=== PATIENT | female | born 1975 | race Two or more races ===

== ENCOUNTER 2017-02-03 07:52 | Outpatient (CLI) | payer MEDICARE, OTHER ==
[~2017-02-03 07:52] MED LIST: NKM
--- NOTE | 2017-02-03 12:23 | Diagnostic Imaging Report ---
Indication: Dyspnea Comparison: None 2 views of the chest obtained. There is foreshortening of the lungs due to projection angle and spinal deformities which includes what appears to be a kyphosis. The bones are osteopenic. Difficult to completely exclude pathology within the lungs but no obvious large infiltrates are identified. Heart size appears prominent. Impression: Limited study due to body habitus. No obvious acute findings
== END 2017-02-03 09:30 | disposition home or self-care (01) ==
LOC: RAD 07:52
DX: R06.00 Dyspnea, unspecified (principal); M85.89 Other specified disorders of bone density and structure, multiple sites
CPT/HCPCS: 71020

== ENCOUNTER 2018-03-24 07:36 | Outpatient (CLI) | payer MEDICARE, MEDICAID ==
--- NOTE | 2018-03-24 12:05 | Diagnostic Imaging Report ---
Indication: Cough Comparison: 02/03/2017 A single view chest radiograph was obtained. Findings: Severe kyphosis deformity of the thoracic spine limits evaluation with foreshortening of the lungs. There is a prominence of the pulmonary interstitium bilaterally which is probably a chronic finding and unchanged from the last study. Bones are osteopenic. Generalized cardiomegaly is present. IMPRESSION: Very limited exam due to kyphosis. Interstitial prominence noted. CHF or interstitial pneumonitis not excluded.
[2018-03-25] MEDS ORDERED: ALBUTEROL2.5 MG/3 M INH (15:42)
[2018-03-25] MEDS ORDERED: AMLODIPINE BESY10 MG ORAL (15:42)
== END 2018-03-24 19:36 | disposition home or self-care (01) ==
LOC: RAD 07:36
DX: R05 Cough (principal); I51.7 Cardiomegaly; M85.80 Other specified disorders of bone density and structure, unspecified site; J45.909 Unspecified asthma, uncomplicated
CPT/HCPCS: 36600; 71045; 82803

== ENCOUNTER 2018-03-24 14:22 | Inpatient (IN) | payer MEDICARE, MEDICAID ==
[~2018-03-24] VITALS: Ht 91.4 cm; Wt 57.6 kg
[2018-03-25] MEDS ORDERED: AMLODIPINE BESY10 MG ORAL (15:42)
[2018-03-25] MEDS ORDERED: ALBUTEROL2.5 MG/3 M INH (15:42)
[2018-03-25] MEDS ORDERED: Albuterol ud Inhalation HHN PRN (15:45)
[2018-03-25 16:00] VITALS: BP 142/94
[2018-03-25 17:50] LABS: EOSINOPHILS % (AUTO) 3.1 % (0.0-3.0); HEMATOCRIT 36.5 % (37.0-47.0); HEMOGLOBIN 11.3 G/DL (12.0-16.0); MEAN CORPUSCULAR VOLUME 76 FL (80-99); MONOCYTES % (AUTO) 8.6 % (1.0-10.0); NEUTROPHILS % (AUTO) 63.3 % (45.0-75.0); PLATELET COUNT 431 K/UL (150-450); RED BLOOD COUNT 4.79 M/UL (4.20-5.40); RED CELL DISTRIBUTION WIDTH 16.8 % (11.6-14.8); WHITE BLOOD COUNT 7.4 K/UL (4.8-10.8)
[2018-03-25 17:51] LABS: ALANINE AMINOTRANSFERASE 20 U/L (12-78); ALBUMIN 3.5 G/DL (3.4-5.0); ALBUMIN/GLOBULIN RATIO 0.9 (1.0-2.7); ALKALINE PHOSPHATASE 76 U/L (46-116); ANION GAP 5 mmol/L (5-15); ASPARTATE AMINO TRANSFERASE 13 U/L (15-37); BILIRUBIN,TOTAL 0.3 MG/DL (0.2-1.0); BLOOD UREA NITROGEN 10 mg/dL (7-18); CALCIUM 8.3 MG/DL (8.5-10.1); CARBON DIOXIDE 31 MMOL/L (21-32); CHLORIDE 106 MMOL/L (98-107); CREATININE 0.5 MG/DL (0.55-1.30); POTASSIUM 3.8 MMOL/L (3.5-5.1); SODIUM 142 MMOL/L (136-145)
[2018-03-25 20:00] VITALS: BP 125/74
[2018-03-25] MEDS: Heparin 5000 units/ml inj SUBQ SCH (21:00)
[2018-03-26] VITALS: BP 132/81
[2018-03-26 08:00] VITALS: BP 105/72
[2018-03-26] MEDS: Heparin 5000 units/ml inj SUBQ SCH ×2 (09:25→21:00)
--- NOTE | 2018-03-26 10:28 | Diagnostic Imaging Report ---
INDICATION: Dyspnea COMPARISON: Chest x-ray dated 02/03/17 FINDINGS: Single frontal view demonstrates dysmorphic chest cavity. Diminutive bilateral lungs. No pleural effusions. The visualized osseous structures are within normal limits. IMPRESSION: No significant change. Dysmorphic chest cavity with diminutive bilateral lungs.
[2018-03-26 12:00] VITALS: BP 133/85
[2018-03-26 16:00] VITALS: BP 119/82
--- NOTE | 2018-03-26 16:36 | Consultation ---
Consult Note Consult Note PULMONARY & CRITICAL CARE CONSULTATION COVERAGE FOR DR CANDI LYONS REFERRING PHYSICIAN: Yann Espino MD REASON FOR CONSULTATION: Hypoxemia HPI: 42 F h/o OI, wheelchair bound, asthma, chronic CO2 retention and FREDO, non- compliant with NIPPV, on usual nocturnal O2 @ home direct admitted by Dr. Espino with several days of inc SOB and O2 needs, no cough, no wheezing, no Sx' s suggestive of her usual asthma exacerbations. She is on 2L O2 @ night only at home and has been requiring O2 RTC for the past few days. No ill contacts, no T/E/D use. PMH: OI, HTN, asthma, FREDO PSH: Back surgery/apollo placement ALL: Vanco Active Scripts Medications Dose Route/Sig Max Daily Dose Days Date Category Albuterol Sulfate Hhn* (Albuterol Sulfate) 2.5 Mg/3 Ml Vial.neb 3 Ml INH Q4H PRN 03/25/18 Reported Amlodipine Besylate* (Amlodipine Besylate) 10 Mg Tablet 10 Mg ORAL DAILY 03/25/18 Reported SHx: wheelchair bound with severe disability but able to perform ADL's, no T/E/ D use, lives with FHx: N/C ROS: Negative other than HPI PE: Last 24 Hour Vital Signs Date Time Temp Pulse Resp B/P (MAP) Pulse Ox O2 Delivery O2 Flow Rate FiO2 03/26/18 16:00 97.4 87 22 119/82 93 Nasal Cannula 2.0 97.4 03/26/18 12:00 98.4 98 23 133/85 93 Nasal Cannula 2.0 98.4 03/26/18 12:00 116 03/26/18 09:21 102 105/72 03/26/18 08:00 98.2 102 22 105/72 93 Nasal Cannula 2.0 98.2 03/26/18 08:00 101 03/26/18 04:00 96 03/26/18 00:00 98.9 94 23 132/81 92 Nasal Cannula 2.0 98.9 03/26/18 00:00 84 03/25/18 20:38 Nasal Cannula 2.0 28 03/25/18 20:38 94 Nasal Cannula 2.0 28 03/25/18 20:00 90 20 Nasal Cannula 2.0 28 03/25/18 20:00 96 03/25/18 20:00 98.2 100 22 125/74 92 Nasal Cannula 2.0 98.2 NAD, AAOx3 NC/AT, OPC c MMM Supple s LAD or JVD CTA no W/R/R RRR s M/R/G S/NT/ND c NABS No C/C/E, skeletal deformities noted Laboratory Tests Test 03/25/18 16:30 White Blood Count 7.4 K/UL (4.8-10.8) Red Blood Count 4.79 M/UL (4.20-5.40) Hemoglobin 11.3 G/DL (12.0-16.0) L Hematocrit 36.5 % (37.0-47.0) L Mean Corpuscular Volume 76 FL (80-99) L Mean Corpuscular Hemoglobin 23.5 PG (27.0-31.0) L Mean Corpuscular Hemoglobin Concent 30.9 G/DL (32.0-36.0) L Red Cell Distribution Width 16.8 % (11.6-14.8) H Platelet Count 431 K/UL (150-450) Mean Platelet Volume 5.9 FL (6.5-10.1) L Neutrophils (%) (Auto) 63.3 % (45.0-75.0) Lymphocytes (%) (Auto) 24.0 % (20.0-45.0) Monocytes (%) (Auto) 8.6 % (1.0-10.0) Eosinophils (%) (Auto) 3.1 % (0.0-3.0) H Basophils (%) (Auto) 1.0 % (0.0-2.0) Sodium Level 142 MMOL/L (136-145) Potassium Level 3.8 MMOL/L (3.5-5.1) Chloride Level 106 MMOL/L (98-107) Carbon Dioxide Level 31 MMOL/L (21-32) Anion Gap 5 mmol/L (5-15) Blood Urea Nitrogen 10 mg/dL (7-18) Creatinine 0.5 MG/DL (0.55-1.30) L Estimat Glomerular Filtration Rate > 60 mL/min (>60) Glucose Level 132 MG/DL (74-106) H Calcium Level 8.3 MG/DL (8.5-10.1) L Total Bilirubin 0.3 MG/DL (0.2-1.0) Aspartate Amino Transf (AST/SGOT) 13 U/L (15-37) L Alanine Aminotransferase (ALT/SGPT) 20 U/L (12-78) Alkaline Phosphatase 76 U/L (46-116) Total Protein 7.5 G/DL (6.4-8.2) Albumin 3.5 G/DL (3.4-5.0) Globulin 4.0 g/dL Albumin/Globulin Ratio 0.9 (1.0-2.7) L CXR: Anatomic changes, NAD Assessment/Plan ASSESSMENT: * Acute on chronic hypoxemia with increased O2 needs, ? hypoventilation, ? PE, ? respiratory infection * Asthma WITHOUT evidence of bronchospasm or wheezing * Chronic hypercapnic respiratory failure, non-compliant with NIPPV * FREDO not on CPAP/BiPAP * Nocturnal O2 dependance * Osteogenesis imperfecta * Severe skeletal deformities and kypohosis * Likely severe underlying restrictive lung disease * Anemia * HTN PLAN: * ABG * BNP * D-dimer * RTC and PRN HHN's * BiPAP 12/5 qHS and PRN * Monitor off Abx for signs of a respiratory infection * TTE * Optimize pulmonary hygiene/mobilize as tolerated * Advair 250/50 * PRN HHN's * Hold off on Abx or steroids for now * DVT Px: Hep SQ * FC DW Dr. Srinivas Judd MD, [facility] Pulmonary & Critical Care Medicine Rodrigo Judd MD Mar 26, 2018 16:36
[2018-03-26] MEDS ORDERED: Albuterol/Ipratropium 3ml neb HHN PRN (16:38)
[2018-03-26 20:00] VITALS: BP 132/77
[2018-03-26] MEDS: Advair 250/50 Inhaler - 14 dose INH SCH (20:00)
--- NOTE | 2018-03-26 21:15 | History and Physical Report ---
DATE OF ADMISSION: 03/25/2018 CHIEF COMPLAINT: Hypoxemia and respiratory failure. HISTORY OF PRESENT ILLNESS: The patient is a pleasant 42-year-old female. She has a history of asthma and osteogenesis imperfecta. She presented to the office several days prior to admission with complaints of shortness of breath. She has a history of asthma. She is on chronic O2 therapy. Her O2 saturation in the office was in the 70s. Outpatient ABG showed a pO2 of 50 on oxygen. In light of the significant hypoxemia and symptomatic shortness of breath, she is now admitted for further evaluation and care. She denies any fever or chills. She has had no cough. She has some mild right-sided chest pain. PAST MEDICAL HISTORY: As above. PAST SURGICAL HISTORY: None. CURRENT MEDICATIONS: Reconciled and reviewed. ALLERGIES: None. FAMILY HISTORY: None. SOCIAL HISTORY: Negative for tobacco, ethanol, or drugs. REVIEW OF SYSTEMS: GENERAL: No fever or chills. HEENT: No headaches or visual changes. CARDIOPULMONARY: chest pain. Positive shortness of breath. GASTROINTESTINAL: No nausea or vomiting. GENITOURINARY: No urgency or frequency. MUSCULOSKELETAL: No joint pain or swelling. NEUROLOGIC: No evidence of seizures. PHYSICAL EXAMINATION: VITAL SIGNS: Temperature 98 degrees, blood pressure 130/76, pulse 82, and respirations 20. GENERAL: The patient is without any distress. HEART: Regular rate and rhythm. LUNGS: Clear. ABDOMEN: Soft, nontender, and nondistended. EXTREMITIES: Without clubbing or cyanosis. She has some joint deformities noted. LABORATORY DATA: Most recent ABG the day prior to admission shows a pO2 of 50. ASSESSMENT: This is a pleasant female with a history of osteogenesis imperfecta and asthma admitted with shortness of breath and hypoxemia. 1. Hypoxemia and respiratory failure. 2. History of osteogenesis imperfecta. 3. Mild asthma. PLAN: 1. Pulmonary consultation. 2. Supplemental oxygen. 3. Breathing treatments as needed. 4. We will follow the patient's chest x-ray. 5. Consider V/Q scan or CT angio to rule out PE. Yann Espino M.D. DR: JENIFFER JOB#: [id number] CC:
[2018-03-27 04:00] VITALS: BP 115/79
[2018-03-27] MEDS: Advair 250/50 Inhaler - 14 dose INH SCH ×2 (07:41→18:00)
[2018-03-27 08:00] VITALS: BP 141/90
[2018-03-27] MEDS: Heparin 5000 units/ml inj SUBQ SCH ×2 (09:00→21:00)
--- NOTE | 2018-03-27 10:32 | General Progress Note ---
Assessment/Plan Problem List: (1) Osteogenesis imperfecta ICD Codes: Q78.0 - Osteogenesis imperfecta SNOMED: 54578035 (2) Asthma ICD Codes: J45.909 - Unspecified asthma, uncomplicated SNOMED: 638029310 (3) Hypoxia ICD Codes: R09.02 - Hypoxemia SNOMED: 399344367 Status: stable, not improved Assessment/Plan o2 bipap resp rx bp rx pain control Subjective ROS Limited/Unobtainable: No Constitutional: Reports: malaise, weakness HEENT: Reports: no symptoms Cardiovascular: Reports: no symptoms Respiratory: Reports: shortness of breath Gastrointestinal/Abdominal: Reports: no symptoms Genitourinary: Reports: no symptoms Neurologic/Psychiatric: Reports: no symptoms Endocrine: Reports: no symptoms Hematologic/Lymphatic: Reports: no symptoms Allergies: Coded Allergies: VANCOMYCIN (Verified Allergy, Severe, erythema, hot and can't breath, 11/17) All Systems: reviewed and negative except above Subjective c/o chest pain chronic from prior rib fracture abg with significant hypoxemia tolerated bipap last night. Objective Last 24 Hour Vital Signs Date Time Temp Pulse Resp B/P (MAP) Pulse Ox O2 Delivery O2 Flow Rate FiO2 03/27/18 09:56 96 141/90 03/27/18 08:00 96 03/27/18 08:00 98.1 94 20 141/90 93 Nasal Cannula 2.0 98.1 03/27/18 07:41 100 Nasal Cannula 2.0 28 03/27/18 07:41 93 20 Nasal Cannula 2.0 28 03/27/18 07:41 Nasal Cannula 2.0 28 03/27/18 04:00 98.3 99 19 115/79 92 Nasal Cannula 2.0 98.3 03/27/18 03:45 97 03/27/18 03:20 94 22 94 Facial 30 03/27/18 00:45 99 18 94 Facial 30 03/26/18 23:39 94 03/26/18 22:08 91 24 95 Facial 30 03/26/18 20:00 98.1 105 26 132/77 92 Nasal Cannula 2.0 98.1 03/26/18 20:00 88 20 Nasal Cannula 2.0 28 03/26/18 20:00 95 Nasal Cannula 2.0 28 03/26/18 20:00 Nasal Cannula 2.0 28 03/26/18 19:50 105 03/26/18 16:00 99 03/26/18 16:00 97.4 87 22 119/82 93 Nasal Cannula 2.0 97.4 03/26/18 12:00 98.4 98 23 133/85 93 Nasal Cannula 2.0 98.4 03/26/18 12:00 116 Intake and Output 03/26/18 03/27/18 19:00 07:00 Intake Total 1200 ml 60 ml Balance 1200 ml 60 ml Intake Oral 1200 ml 60 ml # Voids 1 1 # Bowel Movements 1 Laboratory Tests 03/26/18 16:32: Arterial Blood pH 7.340L, Arterial Blood Partial Pressure CO2 61.2*H, Arterial Blood Partial Pressure O2 43.6*L, Arterial Blood HCO3 33.0H, Arterial Blood Oxygen Saturation 77.1L, Arterial Blood Base Excess 5.6, Gokul Test Positive 03/26/18 17:18: D-Dimer 0.28, Troponin I 0.000, Pro-B-Type Natriuretic Peptide 16 Height (Feet): 3 Weight (Pounds): 127 General Appearance: no apparent distress, alert Neck: supple Cardiovascular: normal rate Respiratory/Chest: chest wall non-tender, lungs clear, normal breath sounds Abdomen: normal bowel sounds, non tender, soft, no organomegaly Edema: no edema noted Arm (L), no edema noted Arm (R), no edema noted Leg (L), no edema noted Leg (R), no edema noted Pedal (L), no edema noted Pedal (R), no edema noted Generalized Yann Espino MD Mar 27, 2018 10:32
[2018-03-27] MEDS ORDERED: HYDROcodone/Acetamin 10/325 tab ORAL PRN (11:30)
[2018-03-27 12:00] VITALS: BP 137/79
--- NOTE | 2018-03-27 13:14 | Pulmonology Progress Note ---
Assessment/Plan Problems: (1) Osteogenesis imperfecta (2) Hypoxia (3) Asthma Assessment/Plan ASSESSMENT: * Acute on chronic hypoxemia with increased O2 needs, ? hypoventilation, ? PE, ? respiratory infection * Asthma WITHOUT evidence of bronchospasm or wheezing * Chronic hypercapnic respiratory failure, non-compliant with NIPPV * FREDO not on CPAP/BiPAP * Nocturnal O2 dependance * Osteogenesis imperfecta * Severe skeletal deformities and kypohosis * Likely severe underlying restrictive lung disease * Anemia * HTN PLAN: * Given degree of hypoxemia will check CT-A despite negative D-dimer * BiPAP 12/5 qHS and PRN * Monitor off Abx for signs of a respiratory infection * F/U final TTE * Optimize pulmonary hygiene/mobilize as tolerated * Advair 250/50 * PRN HHN's * Hold off on Abx or steroids for now * DVT Px: Hep SQ * FC DW [facility] Pulmonary [facility] Critical [facility] Medicine Subjective Allergies: Coded Allergies: VANCOMYCIN (Verified Allergy, Severe, erythema, hot and can't breath, 11/17) Subjective 7.34/61/43/33/77, likely venous given sat discrepancy AFVSS, stable on RA, D-dimer negative + SOB, no cough, no F/C, no CP Objective Last 24 Hour Vital Signs Date Time Temp Pulse Resp B/P (MAP) Pulse Ox O2 Delivery O2 Flow Rate FiO2 03/27/18 09:56 96 141/90 03/27/18 08:00 96 03/27/18 08:00 98.1 94 20 141/90 93 Nasal Cannula 2.0 98.1 03/27/18 07:41 100 Nasal Cannula 2.0 28 03/27/18 07:41 93 20 Nasal Cannula 2.0 28 03/27/18 07:41 Nasal Cannula 2.0 28 03/27/18 04:00 98.3 99 19 115/79 92 Nasal Cannula 2.0 98.3 03/27/18 03:45 97 03/27/18 03:20 94 22 94 Facial 30 03/27/18 00:45 99 18 94 Facial 30 03/26/18 23:39 94 03/26/18 22:08 91 24 95 Facial 30 03/26/18 20:00 98.1 105 26 132/77 92 Nasal Cannula 2.0 98.1 03/26/18 20:00 88 20 Nasal Cannula 2.0 28 03/26/18 20:00 95 Nasal Cannula 2.0 28 03/26/18 20:00 Nasal Cannula 2.0 28 03/26/18 19:50 105 03/26/18 16:00 99 03/26/18 16:00 97.4 87 22 119/82 93 Nasal Cannula 2.0 97.4 Intake and Output 03/26/18 03/27/18 19:00 07:00 Intake Total 1200 ml 60 ml Balance 1200 ml 60 ml Intake Oral 1200 ml 60 ml # Voids 1 1 # Bowel Movements 1 General Appearance: no acute distress HEENT: normocephalic, atraumatic, mucous membranes moist Respiratory/Chest: lungs clear Cardiovascular: normal peripheral pulses, normal rate, regular rhythm Abdomen: normal bowel sounds, soft, non tender, no organomegaly, non distended , no mass Extremities: no cyanosis, no clubbing, other - deformities noted Laboratory Tests 03/26/18 16:32: Arterial Blood pH 7.340L, Arterial Blood Partial Pressure CO2 61.2*H, Arterial Blood Partial Pressure O2 43.6*L, Arterial Blood HCO3 33.0H, Arterial Blood Oxygen Saturation 77.1L, Arterial Blood Base Excess 5.6, Gokul Test Positive 03/26/18 17:18: D-Dimer 0.28, Troponin I 0.000, Pro-B-Type Natriuretic Peptide 16 Current Medications Medications (Trade) Dose Ordered Sig/Adrianna Route PRN Reason Start Time Stop Time Status Last Admin Dose Admin Acetaminophen/ Hydrocodone Bitart ([place] 10/325) 1 tab Q4H PRN ORAL For Pain 03/27/18 11:30 04/03/18 11:29 03/27/18 12:15 Albuterol/ Ipratropium (Albuterol/ Ipratropium) 3 ml Q4H PRN HHN Shortness of Breath 03/26/18 16:38 03/31/18 16:37 Amlodipine Besylate (Norvasc) 10 mg DAILY ORAL 03/26/18 09:00 04/25/18 08:59 03/27/18 09:56 Heparin Sodium (Porcine) (Heparin 5000 units/ml) 5,000 units EVERY 12 HOURS SUBQ 03/25/18 21:00 04/24/18 20:59 03/26/18 09:25 Salmeterol Xinafoate/ Fluticasone (Advair 250/50 Diskus) 1 puffs BID INH 03/26/18 18:00 04/25/18 17:59 03/27/18 07:41 Rodrigo Judd MD Mar 27, 2018 13:14
[2018-03-27] MEDS ORDERED: Isovue-370 150ml vial INJ PRN (13:15)
[2018-03-27 16:00] VITALS: BP 125/76
[2018-03-28] VITALS: BP 110/70
--- NOTE | 2018-03-28 03:30 | Consultation ---
DATE OF CONSULTATION: 03/25/2018 CARDIOLOGY CONSULTATION CONSULTING PHYSICIAN: Steven Fuentes M.D. REQUESTING PHYSICIAN: Yann Espino M.D. REASON FOR CONSULTATION: Hypoxia. HISTORY OF PRESENT ILLNESS: This is a 42-year-old female with osteogenesis imperfecta, who is wheelchair bound. She was seen in the office today by Dr. Espino and was noted to have increasing shortness of breath. She was also noted to be hypoxic with room air saturations in the 70s. The patient was evaluated by me at that time as well. She has not had chest pain. She has not had swelling. She does feel short of breath. She has not had any recent fever, chills, cough, or signs of other respiratory infection. She notes some right-sided chest discomfort. PAST MEDICAL HISTORY: Asthma, osteogenesis imperfecta, hypertension, and history of back surgery with apollo placement. MEDICATIONS: Reviewed and reconciled. ALLERGIES: Vancomycin. SOCIAL HISTORY: Negative for smoking, alcohol, or substance abuse. FAMILY HISTORY: Noncontributory. REVIEW OF SYSTEMS: She is generally wheelchair bound. She is able to perform ADLs. There is no history of coronary artery disease, pericarditis, or cardiac arrhythmias. She does have dependent edema at times. There is no history of pulmonary emboli. PHYSICAL EXAMINATION: VITAL SIGNS: Blood pressure 142/94, pulse 94, respiratory rate 20, and afebrile. Oxygen saturation on 2 liters is 93%. NECK: Short neck. No accessory muscle use. Unable to assess jugular venous pressure. LUNGS: With diminished breath sounds with severe kyphosis. CARDIAC: Rhythm is regular. Normal S1, S2 with no murmur, rub, or gallop. ABDOMEN: Soft. EXTREMITIES: Without edema. Skeletal deformities are noted. LABORATORY DATA: White count 7.4 and hemoglobin 11.3. Albumin 3.5. Chemistry panel within normal limits. Outpatient electrocardiogram revealed sinus rhythm with no acute abnormalities. Radiograph of the chest is pending. IMPRESSION: 1. Hypoxemia. 2. Respiratory insufficiency. 3. No signs of acute congestive heart failure or bronchospasm. PLAN: 1. Check ABG and natriuretic peptide. 2. Consider ventilation/perfusion scan or CT coronary angiogram. 3. Check echocardiogram for assessment of PA systolic pressure. 4. Supplemental oxygen. 5. DVT prophylaxis. Steven Lars Fuentes DR: DIANA JOB#: [id number] CC:
--- NOTE | 2018-03-28 03:45 | Progress Note ---
DATE: 03/26/2018 CARDIOLOGY PROGRESS NOTE Late entry for 03/26/2018. SUBJECTIVE: The patient is still with shortness of breath and hypoxia, but in no acute distress at rest. She has some chest pain over the right side with certain positioning and breathing. It is noted now that the patient has a prior history of rib fractures. OBJECTIVE: VITAL SIGNS: Blood pressure 141/90, pulse 94, and respirations 20. NECK: Supple. Kyphosis. LUNGS: Diminished breath sounds. No wheezing or rales. HEART: Regular rhythm and rate. Normal S1, S2. Tenderness over the right chest wall. EXTREMITIES: No edema. DIAGNOSTIC DATA: Chest x-ray reveals diminutive bilateral lungs, dysmorphic chest cavity, no acute process. IMPRESSION: 1. Hypoxia. 2. Respiratory insufficiency. 3. History of asthma. 4. History of hypertension. PLAN: 1. Supplemental oxygen. 2. Inhaled steroids. 3. Await echocardiogram and results of natriuretic peptide assay. Steven Fuentes M.D. DR: DIANA JOB#: [id number] CC:
--- NOTE | 2018-03-28 03:45 | Progress Note ---
DATE: 03/27/2018 CARDIOLOGY PROGRESS NOTE SUBJECTIVE: She has pain over her right chest. She is tolerating BiPAP at night. ABG revealed pH 7.34, pCO2 61, and pO2 of 44. Natriuretic peptide is 16. Echocardiogram revealed normal ejection fraction with no acute pathology or valvular incompetence significant. IMPRESSION: 1. Palpable hypoventilation syndrome. 2. Rule out pulmonary embolic event. 3. No signs of acute bronchospasm. 4. Chronic respiratory acidosis. 5. No evidence of primary cardiovascular insufficiency. 6. Osteogenesis imperfecta. 7. Hypertension. PLAN: 1. CT coronary angiogram will be obtained. 2. Continue BiPAP support and oxygen supplementation. 3. No additional cardiovascular workup planned. 4. Maintain current antihypertensives. We will consider additional antihypertensive therapy once pulmonary workup has been completed. Steven Fuentes M.D. DR: DIANA JOB#: [id number] CC:
[2018-03-28 04:00] VITALS: BP 126/78
[2018-03-28 08:00] VITALS: BP 114/73
[2018-03-28] MEDS: Heparin 5000 units/ml inj SUBQ SCH (08:35)
--- NOTE | 2018-03-28 09:15 | Cardiology Report ---
APPROVED REPORT EXAM: Two-dimensional and M-mode echocardiogram with Doppler and color Doppler. INDICATION Congestive Heart Failure Technically difficult study due to poor acoustical windows. M-mode measurements not obtainable due to cardiac structure. Normal left ventricular chamber size, systolic function and wall motion. Left ventricular ejection fraction estimated to be 60-65%. No evidence of left ventricular hypertrophy. Small posterior and anterior pericardial effusion. All other cardiac chamber sizes are within normal limits. Focal aortic valve sclerosis with adequate cusp excursion. Thickened mitral valve leaflets with normal excursion. Mild mitral annulus and aortic root calcification. Pulmonic valve not visualized. Normal tricuspid valve structure. IVC is normal in size and collapsible with respiration. A color flow and spectral Doppler study was performed and revealed: No aortic regurgitation. No mitral regurgitation. Mitral inflow velocities indicates possible pseudo normalization pattern implying significant left ventricular diastolic dysfunction. No tricuspid regurgitation.
[2018-03-28] MEDS: Advair 250/50 Inhaler - 14 dose INH SCH (09:16)
--- NOTE | 2018-03-28 09:55 | Pulmonology Progress Note ---
Assessment/Plan Problems: (1) Osteogenesis imperfecta (2) Hypoxia (3) Asthma Assessment/Plan ASSESSMENT: * Acute on chronic hypoxemia with increased O2 needs, ? hypoventilation, ? PE, ? respiratory infection * Asthma WITHOUT evidence of bronchospasm or wheezing * Chronic hypercapnic respiratory failure, non-compliant with NIPPV * FREDO not on CPAP/BiPAP * Nocturnal O2 dependance * Osteogenesis imperfecta * Severe skeletal deformities and kypohosis * Likely severe underlying restrictive lung disease * Anemia * HTN PLAN: * Given degree of hypoxemia will F/U CT-A despite negative D-dimer * BiPAP 12/5 qHS and PRN --> HAS A CPAP AT HOME, WILL F/U WITH DR. LYONS POST D/C * Monitor off Abx for signs of a respiratory infection * F/U final TTE & Dr. Alfredo olpez * Optimize pulmonary hygiene/mobilize as tolerated * Advair 250/50 * PRN HHN's * Hold off on Abx or steroids for now * DVT Px: Hep SQ * FC DW [facility]. Srinivas Jud[facility], [facility] Pulmonary & Critical Care Medicine Subjective Allergies: Coded Allergies: VANCOMYCIN (Verified Allergy, Severe, erythema, hot and can't breath, 11/17) Subjective AFVSS, stable on RA, used BiPAp O/N Less SOB, no cough, no F/C, no CP Objective Last 24 Hour Vital Signs Date Time Temp Pulse Resp B/P (MAP) Pulse Ox O2 Delivery O2 Flow Rate FiO2 03/28/18 08:35 92 114/79 03/28/18 08:19 Nasal Cannula 2.0 28 03/28/18 08:19 96 Nasal Cannula 2.0 28 03/28/18 04:53 2.0 28 03/28/18 04:00 94 03/28/18 04:00 99.1 91 23 126/78 95 Nasal Cannula 2.0 99.1 03/28/18 03:15 86 21 92 Facial 30 03/28/18 01:07 90 20 93 Facial 30 03/28/18 00:00 98.3 94 23 110/70 92 Bi-pap 30 98.3 03/28/18 00:00 94 03/27/18 23:10 91 21 94 Facial 30 03/27/18 21:42 90 20 95 Facial 30 03/27/18 20:00 99 7/1/18 19:41 Nasal Cannula 2.0 28 03/27/18 19:40 91 20 Nasal Cannula 2.0 28 03/27/18 19:40 96 Nasal Cannula 2.0 28 03/27/18 16:00 102 03/27/18 16:00 98.1 100 20 125/76 94 Nasal Cannula 2.0 98.1 03/27/18 12:00 98.5 106 20 137/79 93 Nasal Cannula 2.0 98.5 03/27/18 12:00 118 03/27/18 09:56 96 141/90 Intake and Output 03/27/18 03/28/18 19:00 07:00 Intake Total 960 ml 100 ml Balance 960 ml 100 ml Intake Oral 960 ml 100 ml # Voids 3 # Bowel Movements 3 General Appearance: no acute distress HEENT: normocephalic, atraumatic, mucous membranes moist Respiratory/Chest: chest wall non-tender, lungs clear, normal breath sounds, no respiratory distress, no accessory muscle use Cardiovascular: normal peripheral pulses, normal rate, regular rhythm Abdomen: normal bowel sounds, soft, non tender, no organomegaly, non distended , no mass Extremities: no cyanosis, no clubbing, no edema, other - skeletal deformities noted Current Medications Medications (Trade) Dose Ordered Sig/Adrianna Route PRN Reason Start Time Stop Time Status Last Admin Dose Admin Acetaminophen/ Hydrocodone Bitart ([place] 10/325) 1 tab Q4H PRN ORAL For Pain 03/27/18 11:30 04/03/18 11:29 03/27/18 12:15 Albuterol/ Ipratropium (Albuterol/ Ipratropium) 3 ml Q4H PRN HHN Shortness of Breath 03/26/18 16:38 03/31/18 16:37 Amlodipine Besylate (Norvasc) 10 mg DAILY ORAL 03/26/18 09:00 04/25/18 08:59 03/28/18 08:35 Heparin Sodium (Porcine) (Heparin 5000 units/ml) 5,000 units EVERY 12 HOURS SUBQ 03/25/18 21:00 04/24/18 20:59 03/26/18 09:25 Iopamidol (Isovue-370 150ml) 150 ml NOW PRN INJ Radiology Procedure 03/27/18 13:15 03/29/18 13:14 Salmeterol Xinafoate/ Fluticasone (Advair 250/50 Diskus) 1 puffs BID INH 03/26/18 18:00 04/25/18 17:59 03/28/18 09:16 Rodrigo Judd MD Mar 28, 2018 09:55
--- NOTE | 2018-03-28 10:14 | Diagnostic Imaging Report ---
Indication: Chest pain Technique: Continuous helical transaxial imaging of the chest was obtained from the thoracic inlet to the upper abdomen during rapid intravenous contrast administration. Arterial phase of enhancement obtained. Coronal 2-D reformats were also obtained and maximum intensity projection images in multiple planes. Study obtained in a Siemens sensation [address] Automatic Exposure Control was utilized. Total Dose length Product (DLP): 689.[address] Dose Index Volume (CTDIvol): 35.35 mGy Comparison: None Findings: There is suboptimal opacification of the pulmonary artery. The proximal pulmonary artery i.e. the main pulmonary artery right and left pulmonary artery trunks and first order branches appear clear. Beyond this, no obvious embolus is identified but less confident with regard to the status of a more distal branching due to the poor bolus. The aorta appears normal caliber. There is no dissection or aneurysm. The heart is enlarged. There is trace pericardial fluid present. There are coarse thickened bands of parenchymal density present within the lower lung cain posteriorly likely representing scarring although some of this could be due to atelectasis. There is no evidence of significant airspace disease. There is a severe deformity of the chest due to complex kyphoscoliosis. The deformity is severe. IMPRESSION: No evidence of central pulmonary embolus. Suboptimal evaluation of more distal branching. No evidence of aortic aneurysm or dissection. Extensive scarring involving the posterior basilar aspects of the lungs. Some superimposed atelectasis could be present also. No compelling evidence for pneumonia or airspace disease. Severe, chronic kyphoscoliosis and spinal deformity. The CT scanner at [facility] is accredited by the [employer] and the scans are performed using dose optimization techniques as appropriate to a performed exam including Automatic Exposure control.
[2018-03-28 12:00] VITALS: BP 131/70
[2018-03-28] MEDS ORDERED: ADVAIR 250/501 PUFFS INH (13:33)
--- NOTE | 2018-03-28 23:45 | Progress Note ---
DATE: 03/28/2018 CARDIOLOGY PROGRESS NOTE SUBJECTIVE: The patient feels better. Less short of breath. She is on nasal oxygen and has oxygen at home. The patient had a CT angiogram of the chest that revealed no evidence of central pulmonary embolus and stable aorta. OBJECTIVE: VITAL SIGNS: Blood pressure 131/70, heart rate 85, and respirations 20. LUNGS: Clear with diminished breath sounds. Severe kyphosis. HEART: Regular rhythm and rate. Normal S1, S2. ABDOMEN: Soft. EXTREMITIES: Trace edema. IMPRESSION: 1. Hypoxia. 2. Hypoventilation. 3. Osteogenesis imperfecta. 4. Hypertension. 5. No signs of congestive heart failure. 6. No signs of valvular insufficiency. 7. No signs of pulmonary hypertension. 8. No signs of pulmonary emboli. PLAN: 1. Outpatient followup with home O2. 2. Respiratory hygiene. 3. Continue current cardiovascular regimen without change. Steven Fuentes M.D. DR: DIANA JOB#: [id number] CC:
--- NOTE | 2018-03-29 00:15 | Discharge Summary ---
DATE OF ADMISSION: 03/25/2018 DATE OF DISCHARGE: 03/28/2018 ADMISSION DIAGNOSES: 1. Respiratory failure. 2. Hypoxia. 3. Asthma. 4. Osteogenesis imperfecta. DISCHARGE DIAGNOSES: 1. Respiratory failure. 2. Hypoxia. 3. Asthma. 4. Osteogenesis imperfecta. HOSPITAL COURSE: The patient is a pleasant female admitted with complaints of hypoxemia and shortness of breath. She was noted to be hypoxic with pO2 of 47 on two liters nasal cannula. She had a x-ray and later a CAT scan that showed scarring but no evidence of any PE, no tumor, no pneumonia. The patient's hypoxemia improved with supplemental oxygen as well as breathing treatments, which she will be discharged home. She will be continued on her CPAP which she is currently not been compliant with. She will follow up with the line worker in one to two weeks. DISCHARGE MEDICATIONS: Please see discharge medication list for discharge medications. DIET: Regular diet. ACTIVITY: Ad-lavelle. FOLLOWUP: The patient will be followed up in one to two weeks in the office. Yann Espino M.D. DR: Nanda JOB#: [id number] CC:
== END 2018-03-28 16:10 | disposition home or self-care (01) | DRG 189 ==
LOC: 2E 03-25 14:05
DX: J96.21 Acute and chronic respiratory failure with hypoxia (principal); Q78.0 Osteogenesis imperfecta; J45.909 Unspecified asthma, uncomplicated; J96.12 Chronic respiratory failure with hypercapnia; G47.33 Obstructive sleep apnea (adult) (pediatric); Z91.19 Patient's noncompliance with other medical treatment and regimen; Q76.419 Congenital kyphosis, unspecified region; D64.9 Anemia, unspecified; I10 Essential (primary) hypertension; Z88.1 Allergy status to other antibiotic agents; Z99.3 Dependence on wheelchair
CPT/HCPCS: 36415; 36600; 71045; 71275; 80053; 82803; 83880; 84484; 85025; 85379; 93005; 93306; 94640; 94660; 94664; 94760